=== PATIENT | female | born 1995 | race Caucasian/White ===

== ENCOUNTER → 2017-11-10 | Outpatient (CLI) | payer BC ==
[~2017-11-10] MED LIST: MACROBID 100 M100 M1 PO; NOHOMEMEDICATIONS; NORCO 5-325 TA1 EACH PO; ZOFRAN ODT4 MG PO
--- NOTE | 2017-11-10 16:14 | EXE ---
[place] [address] STRESS ECHOCARDIOGRAM Name: JUANA SHIPMANJacob Marshall Room: [facility]#: [id number] Admission: 11/10/17 Attend Phys: Zachary Jarvis Discharge: Date of : 89 Date of Service: 11/10/17 1614 Report #: [id number] THIS REPORT FOR: //name// APPROVED REPORT Exam: Stress Echocardiogram Indication: Chest pain Patient Location: Out-Patient Stress Nurse: Shannon Pierre RN Supervising Physician: Mitchel Pina MD Ht: 5 ft 4 in HR: 72 bpm BP: 119/71 mmHg Procedure The patient underwent an Exercise Stress Test using the Ray Protocol. Blood pressure, heart rate, and EKG were monitored. An Echocardiogram was performed by sensor technician in four stages in quad fashion. At peak stress, four selected images were obtained and placed side by side with resting images for comparison. Stress Test Details Stress Test: Exercise stress testing was performed using a Ray protocol. HR Resting HR: 72 bpm Max Heart Rate (APMHR): 197 bpm Max HR Achieved: 200 bpm Target HR (85% APMHR): 167 bpm % of APMHR: 101 Recovery HR: 87 bpm HR response to stress: Normal HR response to stress BP Resting BP: 119/71 mmHg Max BP: 163/62 mmHg Recovery BP: 117/61 mmHg ECG Clinical Reason for Termination: Completed protocol, Dyspnea Exercise duration: 10 min 30 sec Highest Stage Achieved: Stage 4: 4.2 mph at 16% grade. Exercise capacity: 12.59 [place] [address] STRESS ECHOCARDIOGRAM Name: VINAY SHIPMAN Room: [facility]#: [id number] Admission: 11/10/17 Attend Phys: Zachary Jarvis Discharge: Date of : 89 Date of Service: 11/10/17 1614 Report #: [id number] The resting Echocardiogram showed normal left ventricular contractility with an estimated Ejection Fraction of about 55-60%. Normal wall motion in all segments on baseline images. Post-Stress Echo The stress Echocardiogram showed normal left ventricular contractility with an estimated Ejection Fraction of about >70%. Normal augmentation of wall motion in all segments on post stress images. Clinical Normal augmentation of myocardial wall segments using a 17 segment model. Conclusion Clinical Response: Non-ischemic Exercise Capacity: Average Stress ECG Response: Indeterminant Stress Echo Images: Non-ischemic Other Information Study Quality: Good <ELECTRONICALLY SIGNED> By: Mitchel Pina MD, [facility] 11/10/17 1614 161 1614 Mitchel Pina MD, FACC /INF
== END ==
LOC: M.CRD 10:50
DX: R07.89 Other chest pain (principal)